=== PATIENT | female | born 1955 | race Caucasian/White ===

== ENCOUNTER → 2016-06-23 | Outpatient (CLI) | payer BC ==
[~2016-06-23] MED LIST: LACT1CAP62 PO; MAGN250T7 PO; MULT-955 PO; PANT20TA2 PO
--- NOTE | 2016-06-23 09:54 | Diagnostic Imaging Report ---
EXAMINATION: DIG PANCHITO BILAT SCREEN W CAD. COMPARISON: 06/05/2015, 06/03/2014, and 02/21/2013. INDICATION: Screening mammography. TECHNIQUE: Digital screening mammography was obtained with a computer-aided detection (CAD) system. FINDINGS: There are scattered fibroglandular densities. Benign vascular calcifications are seen in both breasts. No dominant mass, suspicious microcalcifications, or architectural distortion to suggest malignancy. IMPRESSION: Stable mammogram without evidence of malignancy. A followup screening mammogram in 12 months is recommended. ACR BI-RADS Category 2: Benign findings. Result letter will be mailed to the patient. Note: At least 10% of breast cancer is not imaged by mammography. Dictated by: Dictated on workstation # [id number]
== END ==
LOC: RAD 07:30
PROVIDERS: ATTEND Family Medicine
DX: Z12.31 Encounter for screening mammogram for malignant neoplasm of breast (principal)